=== PATIENT | female | born 1980 | race Caucasian/White ===

== ENCOUNTER 2017-01-05 15:10 | Emergency (ER) | payer OTHER ==
[2017-01-05 15:19] VITALS: BP 129/58
--- NOTE | 2017-01-05 15:43 | UC ---
Skin Complaint HPI - HPI Summary HPI Summary: This is a 36 yo female with HTN, anxiety and environmental allergies who presented with c/o rash and open sore under her L arm pit. Symptoms started ~ 2d ago after spilling a jacobs sauce over her arm at work. She notices that the rash has spread since it initially started. She reports the rash is somewhat painful, not terribly pruritic. Denies fever or systemic symptoms. She has a h/ o of boils, but this is different. - History of Current Complaint Chief Complaint: UCSkin Stated Complaint: RASH Hx Last Menstrual Period: 12/06/16 - Allergy/Home Medications Allergies/Adverse Reactions: Allergies Allergy/AdvReac Type Severity Reaction Status Date / Time No Known Allergies Allergy Verified 01/05/17 15:19 Review of Systems Constitutional: Negative Skin: Rash Eyes: Negative ENT: Negative Respiratory: Negative Cardiovascular: Negative Gastrointestinal: Negative Genitourinary: Negative Motor: Negative Neurovascular: Negative Musculoskeletal: Negative Neurological: Negative Psychological: Negative All Other Systems Reviewed And Are Negative: Yes PMH/Surg Hx/FS Hx/Imm Hx Previously Healthy: No - anxiety, HTN, allergies - Surgical History Surgical History: Yes Surgery Procedure, Year, and Place: Tonsilectomy - Family History Known Family History: Positive: Hypertension, Diabetes - father - Social History Alcohol Use: Rare Substance Use Type: None Smoking Status (MU): Never Smoked Tobacco - Immunization History Most Recent Influenza Vaccination: Not the Season Physical Exam Triage Information Reviewed: Yes Appearance: Well-Appearing Vital Signs: Initial Vital Signs Temp 97.4 F 01/05/17 15:15 Pulse 60 01/05/17 15:15 Resp 17 01/05/17 15:15 BP 129/58 01/05/17 15:15 Pulse Ox 100 01/05/17 15:15 Vital Signs Reviewed: Yes Respiratory: Positive: Lungs clear, Normal breath sounds. Negative: Crackles, Rhonchi, Stridor, Wheezing Cardiovascular: Positive: RRR, No Murmur Abdomen Description: Positive: Nontender Skin: Positive: Other - L axilla has diffuse, patches of erythema with a central lesion that has scant drainage without direct surrounding erythema or fluctuance Course/Dx - Course Course Of Treatment: This is a 36 yo female with a rash under her L axilla for the last 2d with a central open lesion. Rash and lesion appear unrelated. Lesion may be due to local trauma such as shaving. Rash appears to be a hypersensitivity type. Recommend use of antibiotic ointment over the lesion and steroid cream on the surrounding rash. - Differential Diagnoses - Skin Complaint Differential Diagnoses: Abscess, Cellulitis, Contact Dermatitis - Diagnoses Provider Diagnoses: 1. Contact dermatitis. 2. Open lesion without associated infection Discharge - Discharge Plan Condition: Stable Disposition: HOME Prescriptions: Betamethasone Sherry 0.1% CM(NF) [Valisone 0.1% CM(NF)] 1 applic TOPICAL BID #1 tube Patient Education Materials: Acute Rash (ED) Referrals: No Primary Care Phys,NOPCP [Primary Care Provider] - Additional Instructions: Instructions: 1. Please apply antibiotic ointment to open area and monitor for signs of infection 2. Apply steroid cream to surrounding area of redness until resolved
== END 2017-01-05 15:40 | disposition home or self-care (01) ==
LOC: UCCORT 15:10
DX: L25.9 Unspecified contact dermatitis, unspecified cause (principal); I10 Essential (primary) hypertension; F41.9 Anxiety disorder, unspecified
CPT/HCPCS: 99212; G0463

== ENCOUNTER 2017-04-19 13:29 | Emergency (ER) | payer OTHER ==
[2017-04-19 15:00] VITALS: BP 133/59
--- NOTE | 2017-04-19 15:25 | UC ---
Throat Pain/Nasal Quirino HPI - HPI Summary HPI Summary: pt c/o sore throat, nasal congestion, chills and body aches X 1 day. - History of Current Complaint Chief Complaint: UCGeneralIllness Stated Complaint: SORE THROAT,CHILLS,ACHY,WATKINS Time Seen by Provider: 04/19/17 14:57 Hx Obtained From: Patient Hx Last Menstrual Period: 04/07/17 ?: No Onset/Duration: Sudden Onset Severity: Mild Cough: Nonproductive Associated Signs & Symptoms: Positive: Dysphagia - Epiglottits Risk Factors Epiglottis Risk Factors: Negative - Allergies/Home Medications Allergies/Adverse Reactions: Allergies Allergy/AdvReac Type Severity Reaction Status Date / Time No Known Allergies Allergy Verified 04/19/17 15:00 Home Medications: Home Medications [id number] [Dionne-George Plus Day/Nig] 1 mis PO DAILY [History Confirmed 04/19/17] PMH/Surg Hx/FS Hx/Imm Hx Previously Healthy: Yes - Surgical History Surgical History: Yes Surgery Procedure, Year, and Place: Tonsilectomy - Family History Known Family History: Positive: Hypertension, Diabetes - father - Social History Occupation: Employed Full-time Lives: With Family Alcohol Use: Rare Substance Use Type: None Smoking Status (MU): Never Smoked Tobacco Have You Smoked in the Last Year: No - Immunization History Most Recent Influenza Vaccination: Not the Season Review of Systems Constitutional: Chills, Fatigue Skin: Negative Eyes: Negative ENT: Sore Throat Respiratory: Cough Cardiovascular: Negative Gastrointestinal: Negative Genitourinary: Negative Motor: Negative Neurovascular: Negative Musculoskeletal: Negative Neurological: Negative Psychological: Negative Is Patient Immunocompromised?: No All Other Systems Reviewed And Are Negative: Yes Physical Exam Triage Information Reviewed: Yes Appearance: Well-Appearing Vital Signs: Initial Vital Signs Temp 97.7 F 04/19/17 14:57 Pulse 85 04/19/17 14:57 Resp 14 04/19/17 14:57 BP 133/59 04/19/17 14:57 Pulse Ox 98 04/19/17 14:57 Vital Signs Reviewed: Yes Eye Exam: Normal ENT Exam: Other ENT: Positive: Nasal congestion Dental Exam: Normal Neck exam: Normal Respiratory Exam: Normal Cardiovascular Exam: Normal Musculoskeletal Exam: Normal Neurological Exam: Normal Psychological Exam: Normal Skin Exam: Normal Throat Pain/Nasal Course/Dx - Differential Dx/Diagnosis Differential Diagnosis/HQI/PQRI: Influenza, Tonsillitis, URI Provider Diagnoses: viral syndrome Discharge - Discharge Plan Condition: Stable Disposition: HOME Patient Education Materials: Viral Syndrome (ED) Forms: *Work Release Referrals: No Primary Care Phys,NOPCP [Medical Doctor] - If Needed
== END 2017-04-19 15:57 | disposition home or self-care (01) ==
LOC: UCCORT 13:29
DX: B34.9 Viral infection, unspecified (principal)
CPT/HCPCS: 87651; 99211; G0463

== ENCOUNTER 2017-04-24 08:59 | Emergency (ER) | payer OTHER ==
--- NOTE | 2017-04-24 09:25 | UC ---
Respiratory Complaint HPI - HPI Summary HPI Summary: Pt presents with 3 c/o 1. Cough, nasal congestion X 10 days 2. right eye redness and purulent discharge x 1 day 3. left index finger mild erythema, tenderness, possible ingrown nail - History of Current Complaint Chief Complaint: UCEye Stated Complaint: RIGHT EYE COMPLAINT CONGESTION Time Seen by Provider: 04/24/17 09:08 Hx Obtained From: Patient Hx Last Menstrual Period: 04/07/17 ?: No Onset/Duration: Sudden Onset - right eye c/o, Gradual Onset - cough nasal congestion and right finger c/o Timing: Constant Severity Initially: Mild Severity Currently: Mild Character: Cough: Nonproductive Aggravating Factors: Deep Breaths, Recumbent Position Alleviating Factors: Nothing Associated Signs And Symptoms: Positive: Chills, URI, Nasal Congestion - Risk Factors Pulmonary Embolism Risk Factors: Negative Cardiac Risk Factors: Negative Pseudomonas Risk Factors: Negative Tuberculosis Risk Factors: Negative - Allergies/Home Medications Allergies/Adverse Reactions: Allergies Allergy/AdvReac Type Severity Reaction Status Date / Time No Known Allergies Allergy Verified 04/24/17 09:08 PMH/Surg Hx/FS Hx/Imm Hx Previously Healthy: Yes - Surgical History Surgical History: Yes Surgery Procedure, Year, and Place: Tonsilectomy - Family History Known Family History: Positive: Hypertension, Diabetes - father - Social History Occupation: Employed Full-time Lives: With Family Alcohol Use: None Substance Use Type: None Smoking Status (MU): Never Smoked Tobacco Have You Smoked in the Last Year: No - Immunization History Most Recent Influenza Vaccination: no Vaccination Up to Date: No Review of Systems Constitutional: Chills, Fatigue Skin: Other - erythema left index finger, lateral aspect of nail bed Eyes: Drainage, Eye Redness ENT: Sinus Congestion, Sinus Pain/Tenderness Respiratory: Cough Cardiovascular: Negative Gastrointestinal: Negative Genitourinary: Negative Motor: Negative Neurovascular: Negative Musculoskeletal: Negative Neurological: Negative Psychological: Negative Is Patient Immunocompromised?: No All Other Systems Reviewed And Are Negative: Yes Physical Exam Triage Information Reviewed: Yes Appearance: Ill-Appearing Vital Signs: Initial Vital Signs Temp 97.9 F 04/24/17 09:09 Pulse 88 04/24/17 09:09 Resp 16 04/24/17 09:09 BP 144/79 04/24/17 09:09 Pulse Ox 99 04/24/17 09:09 Eye Exam: Other Eyes: Positive: Conjunctiva Inflamed, Discharge ENT Exam: Other ENT: Positive: Nasal congestion, Other - PND Dental Exam: Normal Neck exam: Normal Respiratory Exam: Normal Cardiovascular Exam: Normal Musculoskeletal Exam: Normal Neurological Exam: Normal Psychological Exam: Normal Skin Exam: Other - mild erythema left lateral aspect of nail bed, mild tenderness, no purulent "sac" or discharge Pt declined I& D of possible paranychia UC Diagnostic Evaluation - Laboratory O2 Sat by Pulse Oximetry: 99 Respiratory Course/Dx - Course Course Of Treatment: Pt declined I&D of paronychia - Differential Dx/Diagnosis Differential Diagnosis/HQI/PQRI: Bronchitis, Other - paronychia conjunctivitis Provider Diagnoses: bronchitis. paronychia. conjunctivitis Discharge - Discharge Plan Condition: Stable Disposition: HOME Prescriptions: Cephalexin CAP* [Keflex 500 CAP*] 500 mg PO Q12H #20 cap Polymyx/Trimethoprim OPTH* [Polytrim OPHTH*] 2 drop BOTH EYES Q8H #1 btl Patient Education Materials: Paronychia (ED), Acute Bronchitis (ED), Conjunctivitis (ED), Warm Compress or Soak (ED) Forms: *Work Release Referrals: NORMAN Soto [Primary Care Provider] - Additional Instructions: Please follow up with your PCP or return to clinic as needed.
[2017-04-24 09:27] VITALS: BP 144/79
== END 2017-04-24 09:35 | disposition home or self-care (01) ==
LOC: UCCORT 08:59
DX: J40 Bronchitis, not specified as acute or chronic (principal); H10.31 Unspecified acute conjunctivitis, right eye; L03.012 Cellulitis of left finger
CPT/HCPCS: 99212; G0463

== ENCOUNTER 2017-07-17 09:46 | Emergency (ER) | payer OTHER ==
[2017-07-17 12:25] VITALS: BP 160/75
--- NOTE | 2017-07-17 13:00 | ED ---
Throat Pain/Nasal Congestion - HPI Summary HPI Summary: 37 yr old female with the complaint of facial pain, swelling on the left mandibular cheek and lower lip and dental pain. The patient has had onset of symptoms since yesterday. No fever no chills. She denies trouble swallowing, denies drooling. No other complaints. - History of Current Complaint Chief Complaint: UCDentalProblem Time Seen by Provider: 07/17/17 12:45 - Allergies/Home Medications Allergies/Adverse Reactions: Allergies Allergy/AdvReac Type Severity Reaction Status Date / Time No Known Allergies Allergy Verified 07/17/17 12:24 PMH/Surg Hx/FS Hx/Imm Hx Endocrine/Hematology History: Denies: Hx Diabetes, Hx Thyroid Disease Cardiovascular History: Reports: Hx Hypertension Respiratory History: Denies: Hx Asthma, Hx Chronic Obstructive Pulmonary Disease (COPD) GI History: Reports: Hx Ulcer - GERD Psychiatric History: Reports: Hx Depression - Surgical History Surgery Procedure, Year, and Place: Tonsilectomy Infectious Disease History: No Infectious Disease History: Denies: Hx Clostridium Difficile, Hx Hepatitis, Hx Human Immunodeficiency Virus (HIV), Hx of Known/Suspected MRSA, Hx Shingles, Hx Tuberculosis, Hx Known/ Suspected VRE, Hx Known/Suspected VRSA, History Other Infectious Disease, Traveled Outside the [place] in Last 30 Days - Family History Known Family History: Positive: Hypertension, Diabetes - father - Social History Occupation: Employed Full-time Alcohol Use: Occasionally Substance Use Type: Reports: None Smoking Status (MU): Never Smoked Tobacco Have You Smoked in the Last Year: No Review of Systems Constitutional: Negative Positive: Other - left mandibular swelling, pain, dental pain. Respiratory: Negative All Other Systems Reviewed And Are Negative: Yes Physical Exam Triage Information Reviewed: Yes Vital Signs On Initial Exam: Initial Vitals Temp Pulse Resp BP Pulse Ox 97.4 F 77 18 160/75 100 07/17/17 12:21 07/17/17 12:21 07/17/17 12:21 07/17/17 12:21 07/17/17 12:21 Vital Signs Reviewed: Yes Appearance: Positive: Well-Appearing, No Pain Distress Skin: Positive: Warm, Skin Color Reflects Adequate Perfusion Head/Face: Positive: Normal Head/Face Inspection Eyes: Positive: EOMI ENT: Positive: TMs normal, Other - left cheek is with swelling and some tenderness with percussive tenderness over the mandibular teeth. She has dental fillings in these teeth. Neck: Positive: Supple, Nontender Respiratory/Lung Sounds: Positive: Clear to Auscultation, Breath Sounds Present Cardiovascular: Positive: RRR. Negative: Murmur Musculoskeletal: Positive: Strength/ROM Intact Neurological: Positive: Sensory/Motor Intact, Alert, Oriented to Person Place, Time, CN Intact II-III Psychiatric: Positive: Normal - Yared Coma Scale Best Eye Response: 4 - Spontaneous Best Motor Response: 6 - Obeys Commands Best Verbal Response: 5 - Oriented Coma Scale Total: 15 Diagnostics - Vital Signs Vital Signs Temp Pulse Resp BP Pulse Ox 07/17/17 12:21 97.4 F 77 18 160/75 100 - Laboratory Lab Statement: Any lab studies that have been ordered have been reviewed, and results considered in the medical decision making process. EENT Course/Dx - Course Course Of Treatment: 37 yr old female with facial swelling, dental cavities with tenderness. Plan is to put the patient on Augmentin and have her follow up with dental. She is to go to the ER for any worsening of symptoms. - Diagnoses Provider Diagnoses: Dental cavities, Cellulitis of face, Hypertension Discharge - Discharge Plan Condition: Good Disposition: HOME Prescriptions: Amoxicillin/Clavulanate TAB* [Augmentin TAB 875*] 875 mg PO BID #20 tab Patient Education Materials: Cellulitis (ED), Toothache (ED), Hypertension (ED) Referrals: [facility] [place] [facility]ERR[facility] [Outside] BRITTANY KRAUS [Doctor of Dental Surgery] - No Primary Care Phys,NOPCP [Primary Care Provider] -
== END 2017-07-17 13:06 | disposition home or self-care (01) ==
LOC: UCCORT 09:46
DX: K02.9 Dental caries, unspecified (principal); L03.211 Cellulitis of face; I10 Essential (primary) hypertension
CPT/HCPCS: 99212; G0463

== ENCOUNTER 2017-12-10 12:20 | Emergency (ER) | payer OTHER ==
[2017-12-10 13:22] VITALS: BP 120/53
--- NOTE | 2017-12-10 14:00 | RAD ---
Indication: Right ankle injury. 3 views of the right ankle demonstrate soft tissue swelling. No fracture is identified. Ankle mortise is intact. IMPRESSION: No fracture is identified. Soft tissue swelling.
--- NOTE | 2017-12-18 01:18 | UC ---
Lower Extremity/Ankle HPI - HPI Summary HPI Summary: patient has had right ankle pain for 3 days no known trauma - History of Current Complaint Chief Complaint: UCLowerExtremity Stated Complaint: RIGHT ANKLE Time Seen by Provider: 12/10/17 13:06 Hx Obtained From: Patient Hx Last Menstrual Period: 12/05/17 Onset/Duration: Gradual Onset, Lasting Days - 3 Pain Intensity: 8 Pain Scale Used: 0-10 Numeric Aggravating Factor(s): Ambulation Alleviating Factor(s): Rest, Elevation Able to Bear Weight: Yes - Allergies/Home Medications Allergies/Adverse Reactions: Allergies Allergy/AdvReac Type Severity Reaction Status Date / Time No Known Allergies Allergy Verified 12/10/17 13:22 PMH/Surg Hx/FS Hx/Imm Hx Previously Healthy: No Cardiovascular History: Hypertension Psychological History: Depression - Surgical History Surgical History: Yes Surgery Procedure, Year, and Place: Tonsilectomy - Family History Known Family History: Positive: Hypertension, Diabetes - father - Social History Occupation: Employed Full-time Lives: With Family Alcohol Use: Occasionally Substance Use Type: None Smoking Status (MU): Never Smoked Tobacco Have You Smoked in the Last Year: No - Immunization History Most Recent Influenza Vaccination: Not the Season Vaccination Up to Date: No Review of Systems Constitutional: Negative Skin: Negative Eyes: Negative ENT: Negative Respiratory: Negative Cardiovascular: Negative Gastrointestinal: Negative Genitourinary: Negative Motor: Negative Neurovascular: Negative Musculoskeletal: Arthralgia - right ankle Neurological: Negative Psychological: Negative Is Patient Immunocompromised?: No All Other Systems Reviewed And Are Negative: Yes Physical Exam Triage Information Reviewed: Yes Appearance: Well-Appearing, No Pain Distress, Well-Nourished Vital Signs: Initial Vital Signs Temp 97.2 F 12/10/17 13:17 Pulse 61 12/10/17 13:17 Resp 18 12/10/17 13:17 BP 120/53 12/10/17 13:17 Pulse Ox 99 12/10/17 13:17 Vital Signs Reviewed: Yes Eye Exam: Normal Eyes: Positive: Conjunctiva Clear ENT Exam: Normal ENT: Positive: Normal ENT inspection, Hearing grossly normal. Negative: Trismus , Muffled voice, Hoarse voice Dental Exam: Normal Neck exam: Normal Neck: Positive: Supple, Nontender, No Lymphadenopathy Respiratory Exam: Normal Respiratory: Positive: Chest non-tender, No respiratory distress, No accessory muscle use Cardiovascular Exam: Normal Cardiovascular: Positive: RRR, Pulses Normal, Brisk Capillary Refill Musculoskeletal Exam: Normal Musculoskeletal: Positive: Strength Intact, ROM Intact, Edema @ - right ankle Neurological Exam: Normal Neurological: Positive: Alert, Muscle Tone Normal Psychological Exam: Normal Skin Exam: Normal Lower Extremity Course/Dx - Course Course Of Treatment: rice, gel splint, refused crutches follow with ortho, tylenol, ibuprofen for pain - Differential Dx/Diagnosis Provider Diagnoses: right ankle strain Discharge - Sign-Out/Discharge Documenting (check all that apply): Patient Departure - Discharge Plan Condition: Stable Disposition: HOME Patient Education Materials: Ibuprofen (By mouth), Ankle Sprain (DC), Ankle Stirrup Splint (ED), R.I.C.E. Treatment (ED) Referrals: Aleksandar Avila MD [Medical Doctor] - If Needed - Billing Disposition and Condition Condition: STABLE Disposition: Home
== END 2017-12-10 14:25 | disposition home or self-care (01) ==
LOC: UCCORT 12:20
DX: S96.911A Strain of unspecified muscle and tendon at ankle and foot level, right foot, initial encounter (principal); X58.XXXA Exposure to other specified factors, initial encounter; Y93.9 Activity, unspecified; Y92.9 Unspecified place or not applicable; I10 Essential (primary) hypertension; F32.9 Major depressive disorder, single episode, unspecified; Z82.49 Family history of ischemic heart disease and other diseases of the circulatory system; Z83.3 Family history of diabetes mellitus
CPT/HCPCS: 99213; G0463